=== PATIENT | male | born 1950 | race African-American/Black ===

== ENCOUNTER 2024-09-29 07:04 | Day surgery (SDC) | payer OTHER ==
[2024-09-21 11:52] VITALS: BMI 24.3
[2024-09-29 09:32] VITALS: TEMP 97.2
[2024-09-29 09:42] VITALS: BP 141/81; PULSE 81; RESP 20
== END 2024-09-29 10:00 | disposition home or self-care (01) ==
LOC: JASU-ENDO 07:04
PROVIDERS: ATTEND Internal Medicine Gastroenterology
PROC: 0DB68ZX Excision of Stomach, Via Natural or Artificial Opening Endoscopic, Diagnostic (ICD-10-PCS; 2024-09-29)
PROC: 0DB48ZX Excision of Esophagogastric Junction, Via Natural or Artificial Opening Endoscopic, Diagnostic (ICD-10-PCS; 2024-09-29)
PROC: 0DB98ZX Excision of Duodenum, Via Natural or Artificial Opening Endoscopic, Diagnostic (ICD-10-PCS; principal; 2024-09-29 08:00)
DX: Q45.3 Other congenital malformations of pancreas and pancreatic duct (principal); K29.50 Unspecified chronic gastritis without bleeding; K31.A12 Gastric intestinal metaplasia without dysplasia, involving the body (corpus)
CPT/HCPCS: 88305-TC; 88342-TC

== ENCOUNTER 2024-11-22 05:27 | Day surgery (SDC) | payer OTHER ==
[2024-11-18 16:39] VITALS: BMI 23.5
[2024-11-22] MEDS ORDERED: MIDAZOLAM HCL 2 MG/2 ML SINGLE DOSE VIAL ONE (11:47)
[2024-11-22 13:15] VITALS: RESP 18
[2024-11-22 14:36] VITALS: BP 142/72; PULSE 57; TEMP 98
== END 2024-11-22 13:54 | disposition home or self-care (01) ==
LOC: JASU-SURG 05:27
PROVIDERS: ATTEND Urology
PROC: 0TF3XZZ Fragmentation in Right Kidney Pelvis, External Approach (ICD-10-PCS; principal; 2024-11-22 12:30)
DX: N20.0 Calculus of kidney (principal)